=== PATIENT | female | born 1995 | race Caucasian/White ===

== ENCOUNTER → 2023-08-20 14:00 | Outpatient (REF) | payer BC, SELFPAY | LOC: HWRAD 14:00 | PROVIDERS: ATTENDING PHYSICIAN Physician Assistant | DX: M25.531 Pain in right wrist (principal) | CPT/HCPCS: 73110 ==

== ENCOUNTER → 2023-09-14 12:22 | Outpatient (REF) | payer BC, SELFPAY | LOC: PAVMRI 12:22 | PROVIDERS: ATTENDING PHYSICIAN Physician Assistant | DX: M25.531 Pain in right wrist (principal); G89.29 Other chronic pain; R20.0 Anesthesia of skin; R20.2 Paresthesia of skin | CPT/HCPCS: 73221 ==